=== PATIENT | male | born 1960 | race Caucasian/White ===

== ENCOUNTER 2016-10-01 18:17 | Inpatient (IN) | payer OTHER ==
[~2016-10-01] VITALS: Ht 165.1 cm; Wt 79.1 kg
[2016-10-01] VITALS (8 sets, daily range): BP systolic 110–151; BP diastolic 75–99
[2016-10-01 18:30] LABS: EOSINOPHIL (%) 0.7 % (0-5); EOSINOPHIL COUNT 0.1 K/uL (0-0.3); HEMATOCRIT 44.2 % (38.0-50.0); IMMATURE GRANULOCYTE (%) 0.2 % (0.0-0.7); LYMPHOCYTE COUNT 1.9 K/uL (1.0-2.8); MCH 30.3 PG (29.0-34.0); MCHC 33.9 G/DL (30.0-36.0); MCV 89.3 FL (86-99); MEAN PLAT.VOLUME 10.8 uM^3 (9.0-12.4); MONOCYTE (%) 6.8 % (3-12); MONOCYTE COUNT 0.6 K/uL (0-0.8); NEUTROPHIL (%) 69.8 % (45-76); PLATELET COUNT 448 K/uL (156-360); RBC DIS.WIDTH-CV 13.2 % (11.8-14.6); RBC DIS.WIDTH-SD 43.2 % (39-53); RED BLOOD COUNT 4.95 M/uL (4.00-5.50); WHITE BLOOD COUNT 8.5 K/uL (4.1-10.2)
[2016-10-01 18:38] LABS: AMYLASE 58 IU/L (1-118); CHLORIDE 98 mEq/L (99-109)
[2016-10-01 18:39] LABS: POTASSIUM 3.8 mEq/L (3.7-5.4); SODIUM 137 mEq/L (136-147)
[2016-10-01 18:42] LABS: ANION GAP 13 MEQ/L (2-14)
[2016-10-01 18:43] LABS: PROTHROMBIN TIME 10.4 (9.2-11.2); PTT 30.1 (25-32); SERUM ETHYL ALCOHOL < 10 mg/dL
[2016-10-01 18:44] LABS: GFR ESTIMATE (CALCULATED) > 59 mL/min/
[2016-10-01 18:45] LABS: UREA NITROGEN (BUN) 15 mg/dL (9-23)
[2016-10-01 18:47] LABS: LIPASE 52 U/L (1.0-51.0)
[2016-10-01 18:51] LABS: GLUCOSE 121 mg/dL (70-99)
[2016-10-01 18:52] LABS: TROP-I INTERPRETATION POSITIVE; TROPONIN-I 6.56 ng/mL (0.0-0.30)
[2016-10-01] MEDS ORDERED: TAMSULOSIN HCL0.4 MG PO (21:19)
[2016-10-01] MEDS ORDERED: ATORVASTATIN CA10 MG PO (21:20)
[2016-10-01 23:04] LABS: METH RESISTANT S AUREUS PCR NEGATIVE (NEGATIVE); PROBE CHECK PASS; SPECIMEN PROCESSING CONTROL PASS
[2016-10-02] VITALS (17 sets, daily range): BP systolic 103–152; BP diastolic 62–94
[2016-10-02 06:21] LABS: TOTAL CK 368 IU/L (1-294)
[2016-10-02 06:22] LABS: ANION GAP 8 MEQ/L (2-14); CHLORIDE 105 MEQ/L (99-109); GFR ESTIMATE (CALCULATED) > 59 mL/min/; GLUCOSE 113 mg/dL (70-99); POTASSIUM 4.1 MEQ/L (3.7-5.4); SAMPLE HEMOLYSIS CHECK 0; SAMPLE ICTERIC CHECK 0; SAMPLE LIPEMIA CHECK 0; SODIUM 140 MEQ/L (136-147); UREA NITROGEN (BUN) 13 mg/dL (9-23)
[2016-10-02 06:27] LABS: EOSINOPHIL (%) 0.2 % (0-5); HEMATOCRIT 36.9 % (38.0-50.0); IMMATURE GRANULOCYTE (%) 0.4 % (0.0-0.7); INSTRUMENT ABS NEUTROPHIL CT 6.1 K/uL; LYMPHOCYTE COUNT 1.3 K/uL (1.0-2.8); MCH 31.1 PG (29.0-34.0); MCHC 34.4 G/DL (30.0-36.0); MCV 90.4 FL (86-99); MEAN PLAT.VOLUME 10.8 uM^3 (9.0-12.4); MONOCYTE (%) 7.4 % (3-12); MONOCYTE COUNT 0.6 K/uL (0-0.8); NEUTROPHIL (%) 75.7 % (45-76); NEUTROPHIL COUNT 6.1 K/uL (1.8-6.4); PLATELET COUNT 474 K/uL (156-360); RBC DIS.WIDTH-CV 13.5 % (11.8-14.6); RBC DIS.WIDTH-SD 44.5 % (39-53); RED BLOOD COUNT 4.08 M/uL (4.00-5.50); WHITE BLOOD COUNT 8.1 K/uL (4.1-10.2)
[2016-10-02 06:28] LABS: TROP-I INTERPRETATION POSITIVE; TROPONIN-I 6.75 ng/mL (0.0-0.30)
[2016-10-02 06:29] LABS: CREATINE KINASE 368 IU/L (1-294)
[2016-10-02 06:41] LABS: Estimated Average Glucose 114 mg/dL (70-123); HEMOGLOBIN A1c (GLYCOHEMOGLOB) 5.6 % HGB (Below 5.7)
[2016-10-02 07:18] LABS: CK-MB 40.3 ng/mL (0.0-4.9)
[2016-10-02] MEDS ORDERED: NEURONTIN600 MG PO (15:04)
[2016-10-02] MEDS ORDERED: ZESTORETIC 20-1 EAC2 PO (15:04)
[2016-10-02] MEDS ORDERED: LIPITOR10 MG PO (15:04)
[2016-10-02] MEDS ORDERED: RESTORIL15 MG PO (15:06)
[2016-10-02 18:10] LABS: ADD MIUA? YES; BILIRUBIN NEGATIVE; BLOOD MODERATE; COLOR YELLOW ((YELLOW)); GLUCOSE (STRIP) NEGATIVE; KETONES NEGATIVE; LEUKOCYTES NEGATIVE; NITRITE NEGATIVE; PROTEIN (STRIP) NEGATIVE; SPECIFIC GRAVITY 1.045 (1.000-1.030); UROBILINOGEN 0.2 MG/DL (0.2-1.0)
[2016-10-02 18:26] LABS: AMPHETAMINES QUANT VALUE 0 NG/ML; BARBITUATES QUANT VALUE 0 NG/ML; BENZODIAZEPINES, URINE SCREEN POSITIVE (200 ng/mL); MARIJUANA QUANT VALUE 0 NG/ML; OPIATES QUANTITATIVE VALUE 0 NG/ML; PHENCYCLIDINE QUANT VALUE 0 NG/ML
[2016-10-02 18:38] LABS: BACTERIA 1+ /HPF; CASTS NONE SEEN /LPF; CRYSTALS NONE SEEN; EPITHELIAL CELLS RARE /HPF; MUCUS RARE /LPF; UCUL ADDED? NO; WHITE BLOOD CELLS 0-5 /HPF (0-5)
[2016-10-02 18:54] LABS: TOTAL CK 513 IU/L (1-294)
[2016-10-02 18:59] LABS: TROP-I INTERPRETATION POSITIVE; TROPONIN-I 8.87 ng/mL (0.0-0.30)
[2016-10-02 19:19] LABS: CREATINE KINASE 513 IU/L (1-294)
[2016-10-03] VITALS (11 sets, daily range): BP systolic 107–141; BP diastolic 66–91
[2016-10-03 07:50] LABS: HEMATOCRIT 35.8 % (38.0-50.0); MCH 30.9 PG (29.0-34.0); MCHC 33.8 G/DL (30.0-36.0); MCV 91.3 FL (86-99); MEAN PLAT.VOLUME 10.6 uM^3 (9.0-12.4); PLATELET COUNT 381 K/uL (156-360); RBC DIS.WIDTH-CV 13.7 % (11.8-14.6); RED BLOOD COUNT 3.92 M/uL (4.00-5.50); WHITE BLOOD COUNT 8.6 K/uL (4.1-10.2)
[2016-10-03 08:14] LABS: TROP-I INTERPRETATION POSITIVE; TROPONIN-I 7.46 ng/mL (0.0-0.30)
[2016-10-03 08:22] LABS: ANION GAP 9 MEQ/L (2-14); CHLORIDE 104 MEQ/L (99-109); CREATINE KINASE 361 IU/L (1-294); GFR ESTIMATE (CALCULATED) > 59 mL/min/; GLUCOSE 93 mg/dL (70-99); POTASSIUM 4.3 MEQ/L (3.7-5.4); SAMPLE HEMOLYSIS CHECK 0; SAMPLE ICTERIC CHECK 0; SAMPLE LIPEMIA CHECK 0; SODIUM 138 MEQ/L (136-147); TOTAL CK 361 IU/L (1-294); UREA NITROGEN (BUN) 13 mg/dL (9-23)
[2016-10-03 09:23] LABS: CK-MB 12.3 ng/mL (0.0-4.9)
[2016-10-04] VITALS (11 sets, daily range): BP systolic 98–158; BP diastolic 57–110
[2016-10-04 04:50] LABS: HEMATOCRIT 36.9 % (38.0-50.0); MCH 30.5 PG (29.0-34.0); MCHC 33.6 G/DL (30.0-36.0); MCV 90.7 FL (86-99); MEAN PLAT.VOLUME 10.7 uM^3 (9.0-12.4); PLATELET COUNT 393 K/uL (156-360); RBC DIS.WIDTH-CV 13.5 % (11.8-14.6); RBC DIS.WIDTH-SD 45.1 % (39-53); RED BLOOD COUNT 4.07 M/uL (4.00-5.50)
[2016-10-05] VITALS (7 sets, daily range): BP systolic 116–142; BP diastolic 69–94
[2016-10-05] MEDS ORDERED: EFFIENT10 MG PO (16:44)
[2016-10-05] MEDS ORDERED: ATORVASTATIN CA40 MG PO (16:45)
[2016-10-05] MEDS ORDERED: LOPRESSOR25 MG PO (16:45)
[2016-10-05] MEDS ORDERED: NITROSTAT0.4 MG SL (16:45)
[2016-10-05] MEDS ORDERED: SPIRONOLACTONE25 MG PO (16:46)
[2016-10-05] MEDS ORDERED: LISINOPRIL10 MG PO (16:46)
[2016-10-05] MEDS ORDERED: ASPIR-LOW81 MG PO (16:47)
== END 2016-10-05 17:49 | disposition home or self-care (01) | DRG 247 ==
LOC: EME 18:17 → CATH 18:51 → 2SOUTH 19:57 → 4WEST 19:57
PROVIDERS: Emergency Medicine; Internal Medicine Cardiovascular Disease; Internal Medicine Interventional Cardiology; Internal Medicine Pulmonary Disease
DX: I21.02 ST elevation (STEMI) myocardial infarction involving left anterior descending coronary artery (principal); I10 Essential (primary) hypertension; I25.5 Ischemic cardiomyopathy; I34.0 Nonrheumatic mitral (valve) insufficiency; E78.5 Hyperlipidemia, unspecified; I25.119 Atherosclerotic heart disease of native coronary artery with unspecified angina pectoris; G89.29 Other chronic pain; I25.3 Aneurysm of heart; M54.5 Low back pain; M48.00 Spinal stenosis, site unspecified; M21.372 Foot drop, left foot; Z88.0 Allergy status to penicillin; Z87.891 Personal history of nicotine dependence; Z82.3 Family history of stroke
CPT/HCPCS: 36415; 80048; 80048 91; 80306 90; 81003; 82150; 82550; 82550 91; 82553; 83036; 83690; 84484; 85025; 85025 91; 85027; 85347; 85610; 85730; 86900; 86901; 87641; 93005; 93306; 94799; 99281; 99285; C1725; C1760; C1769; C1874; C1887; C1894; G0480; J0153; J1644; J1650; J2250; J3010; J3246

== ENCOUNTER → 2016-11-16 | Outpatient (CLI) | payer OTHER ==
[~2016-11-16] MED LIST: ASPIR-LOW81 MG PO; ATORVASTATIN CA10 MG PO; ATORVASTATIN CA40 MG PO; EFFIENT10 MG PO; LIPITOR10 MG PO; LISINOPRIL10 MG PO; LOPRESSOR25 MG PO; NEURONTIN600 MG PO; NITROSTAT0.4 MG SL; RESTORIL15 MG PO; SPIRONOLACTONE25 MG PO; TAMSULOSIN HCL0.4 MG PO; ZESTORETIC 20-1 EAC2 PO
== END | disposition home or self-care (01) ==
LOC: EKG 13:52
DX: I05.1 Rheumatic mitral insufficiency (principal); I07.1 Rheumatic tricuspid insufficiency; R94.31 Abnormal electrocardiogram [ECG] [EKG]
CPT/HCPCS: 93306

== ENCOUNTER 2017-04-22 10:03 | Emergency (ER) | payer OTHER ==
[~2017-04-22] VITALS: Ht 165.1 cm; Wt 84.6 kg
[2017-04-22 10:38] LABS: HEMATOCRIT 44.5 % (38.0-50.0); HEMOGLOBIN 15.3 G/DL (12.5-16.6); MCH 31.9 PG (29.0-34.0); MCHC 34.4 G/DL (30.0-36.0); MCV 92.9 FL (86-99); PLATELET COUNT 407 K/uL (156-360); RBC DIS.WIDTH-CV 12.6 % (11.8-14.6); RED BLOOD COUNT 4.79 M/uL (4.00-5.50); WHITE BLOOD COUNT 6.4 K/uL (4.1-10.2)
[2017-04-22 10:51] LABS: CHLORIDE 106 mEq/L (99-109); POTASSIUM 4.1 mEq/L (3.7-5.4); SODIUM 139 mEq/L (136-147)
[2017-04-22 10:53] LABS: GLUCOSE 115 mg/dL (70-99)
[2017-04-22 10:57] LABS: GFR ESTIMATE (CALCULATED) > 59 mL/min/ (58.99-99999)
[2017-04-22 10:58] LABS: UREA NITROGEN (BUN) 18 mg/dL (9-23)
[2017-04-22 11:29] LABS: INTER. NORMALIZED RATIO 1.1
[2017-04-22 11:31] LABS: PTT 30.5 SEC (25-37)
[2017-04-22 11:56] LABS: TROP-I INTERPRETATION NEGATIVE; TROPONIN-I 0.02 ng/mL (0.0-0.30)
[2017-04-22] MEDS ORDERED: VENTOLIN HFA18 GM IH (12:07)
[2017-04-22 12:15] VITALS: BP 139/82
== END 2017-04-22 12:26 | disposition home or self-care (01) ==
LOC: EME 10:03
PROVIDERS: Nurse Practitioner Family
DX: R04.2 Hemoptysis (principal); I10 Essential (primary) hypertension; Z86.73 Personal history of transient ischemic attack (TIA), and cerebral infarction without residual deficits; I25.2 Old myocardial infarction; Z87.891 Personal history of nicotine dependence; Z79.82 Long term (current) use of aspirin
CPT/HCPCS: 71020; 80048; 84484; 85027; 85610; 85730; 93005; 94640; 99281; 99284

== ENCOUNTER 2017-12-09 19:34 | Inpatient (IN) | payer OTHER ==
[~2017-12-09] VITALS: Ht 165.1 cm; Wt 77.8 kg
[~2017-12-09 19:34] MED LIST changes: +VENTOLIN HFA18 GM IH
[2017-12-09 20:05] LABS: HEMATOCRIT 42.5 % (38.0-50.0); HEMOGLOBIN 14.8 G/DL (12.5-16.6); MCHC 34.8 G/DL (30.0-36.0); MCV 88.9 FL (86-99); PLATELET COUNT 374 K/uL (156-360); RBC DIS.WIDTH-CV 13.1 % (11.8-14.6); RBC DIS.WIDTH-SD 42.9 % (39-53); RED BLOOD COUNT 4.78 M/uL (4.00-5.50); WHITE BLOOD COUNT 8.1 K/uL (4.1-10.2)
[2017-12-09 20:12] LABS: CHLORIDE 103 mEq/L (99-109); POTASSIUM 3.7 mEq/L (3.7-5.4); SODIUM 138 mEq/L (136-147)
[2017-12-09 20:14] LABS: GLUCOSE 131 mg/dL (70-99)
[2017-12-09 20:18] LABS: CREATININE 0.9 mg/dL (0.6-1.3); GFR ESTIMATE (CALCULATED) > 59 mL/min/ (58.99-99999)
[2017-12-09 20:19] LABS: UREA NITROGEN (BUN) 16 mg/dL (9-23)
[2017-12-09 20:26] LABS: TROP-I INTERPRETATION NEGATIVE; TROPONIN-I 0.01 ng/mL (0.0-0.30)
[2017-12-09 21:14] LABS: BASOPHIL (%) 0.6 % (0-1); BASOPHIL COUNT 0.1 K/uL (0-0.1); EOSINOPHIL COUNT 0.1 K/uL (0-0.3); HEMATOCRIT 41.6 % (38.0-50.0); HEMOGLOBIN 14.5 G/DL (12.5-16.6); IMMATURE GRANULOCYTE (%) 0.4 % (0.0-0.7); LYMPHOCYTE (%) 18.8 % (15-42); LYMPHOCYTE COUNT 1.6 K/uL (1.0-2.8); MCH 30.8 PG (29.0-34.0); MCHC 34.9 G/DL (30.0-36.0); MCV 88.3 FL (86-99); MONOCYTE (%) 6.1 % (3-12); MONOCYTE COUNT 0.5 K/uL (0-0.8); NEUTROPHIL (%) 73.1 % (45-76); NEUTROPHIL COUNT 6.1 K/uL (1.8-6.4); PLATELET COUNT 395 K/uL (156-360); RBC DIS.WIDTH-CV 13.1 % (11.8-14.6); RBC DIS.WIDTH-SD 42.4 % (39-53); RED BLOOD COUNT 4.71 M/uL (4.00-5.50); WHITE BLOOD COUNT 8.3 K/uL (4.1-10.2)
[2017-12-09 21:20] LABS: AMYLASE 58 IU/L (1-118)
[2017-12-09 21:24] LABS: INTER. NORMALIZED RATIO 1.1
[2017-12-09 21:25] LABS: SERUM ETHYL ALCOHOL < 10 mg/dL
[2017-12-09 21:26] LABS: APPEARANCE CLEAR ((CLEAR)); BILIRUBIN NEGATIVE; BLOOD SMALL; COLOR STRAW ((YELLOW)); GLUCOSE (STRIP) NEGATIVE; KETONES NEGATIVE; LEUKOCYTES NEGATIVE; NITRITE NEGATIVE; PROTEIN (STRIP) NEGATIVE; SPECIFIC GRAVITY 1.009 (1.000-1.030); UROBILINOGEN 0.2 MG/DL (0.2-1.0)
[2017-12-09 21:27] LABS: PTT 29.4 SEC (25-37)
[2017-12-09 21:28] LABS: LIPASE 26 U/L (1.0-51.0)
[2017-12-09 21:29] LABS: BACTERIA NONE SEEN /HPF; EPITHELIAL CELLS NONE SEEN /HPF; MUCUS NONE SEEN /LPF; RED BLOOD CELLS 0-5 /HPF (0-5); UCUL ADDED? NO; WHITE BLOOD CELLS 0-5 /HPF (0-5)
[2017-12-09 21:33] LABS: TROP-I INTERPRETATION NEGATIVE; TROPONIN-I < 0.01 ng/mL (0.0-0.30)
[2017-12-09] MEDS ORDERED: LIPITOR40 MG PO (21:34)
[2017-12-09] MEDS ORDERED: EFFIENT10 MG PO (21:34)
[2017-12-09] MEDS ORDERED: LISINOPRIL10 MG PO (21:35)
[2017-12-09] MEDS ORDERED: LOPRESSOR25 MG PO (21:35)
[2017-12-09] MEDS ORDERED: ADULT ASPIRIN81 MG PO (21:35)
[2017-12-09] MEDS ORDERED: PERCOCET 5/31 TABLET PO (21:36)
[2017-12-09 21:56] LABS: AMPHETAMINE NEGATIVE (500 ng/mL); BARBITURATES NEGATIVE (200 ng/mL); BENZODIAZEPINES PRESUMPTIVE POSITIVE (150 ng/mL); BUPRENORPHINE NEGATIVE (10 ng/mL); COCAINE NEGATIVE (150 ng/mL); METHADONE NEGATIVE (200 ng/mL); METHAMPHETAMINE NEGATIVE (500 ng/mL); OPIATES (MORPHINE) NEGATIVE (100 ng/mL); OXYCODONE NEGATIVE (100 ng/mL); PHENCYCLIDINE NEGATIVE (25 ng/mL); PROPOXYPHENE NEGATIVE (300 ng/mL); THC CANNABINOIDS NEGATIVE (50 ng/mL); TRICYCLIC ANTIDEPRESSANTS NEGATIVE (300 ng/mL)
[2017-12-09 22:31] LABS: BENZODIAZEPINES, URINE SCREEN Negative (200 ng/mL)
[2017-12-10 00:15] VITALS: BP 196/107
[2017-12-10 01:00] VITALS: BP 174/90
[2017-12-10 03:30] VITALS: BP 165/89
[2017-12-10 03:36] LABS: BASOPHIL (%) 0.6 % (0-1); BASOPHIL COUNT 0.1 K/uL (0-0.1); EOSINOPHIL COUNT 0.1 K/uL (0-0.3); HEMATOCRIT 38.9 % (38.0-50.0); HEMOGLOBIN 13.6 G/DL (12.5-16.6); IMMATURE GRANULOCYTE (%) 0.2 % (0.0-0.7); LYMPHOCYTE (%) 18.6 % (15-42); LYMPHOCYTE COUNT 1.5 K/uL (1.0-2.8); MCH 31.1 PG (29.0-34.0); MONOCYTE (%) 6.8 % (3-12); MONOCYTE COUNT 0.6 K/uL (0-0.8); NEUTROPHIL (%) 72.8 % (45-76); PLATELET COUNT 361 K/uL (156-360); RBC DIS.WIDTH-SD 42.5 % (39-53); RED BLOOD COUNT 4.37 M/uL (4.00-5.50); WHITE BLOOD COUNT 8.2 K/uL (4.1-10.2)
[2017-12-10 03:46] LABS: CHLORIDE 105 mEq/L (99-109); POTASSIUM 3.7 mEq/L (3.7-5.4); SODIUM 139 mEq/L (136-147)
[2017-12-10 03:47] LABS: GLUCOSE 104 mg/dL (70-99)
[2017-12-10 03:51] LABS: CREATININE 0.8 mg/dL (0.6-1.3); GFR ESTIMATE (CALCULATED) > 59 mL/min/ (58.99-99999)
[2017-12-10 03:52] LABS: UREA NITROGEN (BUN) 19 mg/dL (9-23)
[2017-12-10 05:09] LABS: HDL CHOLESTEROL 39 MG/DL (Desirable>=40); LDL CHOLESTEROL 56 mg/dL (Desirable<100); NON-HDL CHOLESTEROL 69 mg/dL (Desirable<160); TOTAL CHOLESTEROL 108 mg/dL (Desirable<200); TRIGLYCERIDES 64 MG/DL (Normal: <150)
[2017-12-10 08:10] VITALS: BP 171/94
[2017-12-10 11:45] VITALS: BP 176/90
[2017-12-10 15:31] VITALS: BP 126/73
[2017-12-10] MEDS ORDERED: LISINOPRIL10 MG PO (16:29)
[2017-12-10] MEDS ORDERED: LISINOPRIL20 MG PO (17:19)
== END 2017-12-10 17:48 | disposition home or self-care (01) | DRG 305 ==
LOC: EME 19:34 → ENRESERV 21:01 → CANRESERV 21:01 → 4EAST 23:25 → EDOF 23:25 → ENRESERV 23:28 → 4EAST 12-10 00:11
PROVIDERS: Internal Medicine; Physician Assistant
DX: I16.0 Hypertensive urgency (principal); I10 Essential (primary) hypertension; R07.9 Chest pain, unspecified; R94.31 Abnormal electrocardiogram [ECG] [EKG]; I25.10 Atherosclerotic heart disease of native coronary artery without angina pectoris; I25.5 Ischemic cardiomyopathy; I25.2 Old myocardial infarction; Z91.11 Patient's noncompliance with dietary regimen; G89.29 Other chronic pain; M48.00 Spinal stenosis, site unspecified; M54.9 Dorsalgia, unspecified; M21.372 Foot drop, left foot; E78.5 Hyperlipidemia, unspecified; G47.00 Insomnia, unspecified; N40.0 Benign prostatic hyperplasia without lower urinary tract symptoms; Z95.5 Presence of coronary angioplasty implant and graft; Z86.73 Personal history of transient ischemic attack (TIA), and cerebral infarction without residual deficits; Z87.891 Personal history of nicotine dependence
CPT/HCPCS: 71046; 80048; 80061; 81003; 82150; 83690; 84484; 84999; 85025; 85027; 85610; 85730; 86850; 86900; 86901; 93005; 99281; 99285; G0480